=== PATIENT | female | born 1955 | race Caucasian/White ===

== ENCOUNTER 2017-08-22 16:01 | Inpatient (IN) | payer OTHER ==
[2017-08-22 17:22] LABS: CKMB 0.6 ng/mL (0-6.6); Troponin I Less than 0.010 ng/mL (< 0.028)
[2017-08-22 20:28] LABS: Troponin I Less than 0.010 ng/mL (< 0.028)
[2017-08-22 23:11] LABS: Troponin I Less than 0.010 ng/mL (< 0.028)
[2017-08-23 00:07] VITALS: BMI 25.8
[2017-08-23] MEDS ORDERED: Acetaminophen 325 MG TAB PO PRN (00:07)
[2017-08-23] MEDS ORDERED: Ondansetron ODT 4 MG TAB SL PRN (00:07)
[2017-08-23] MEDS ORDERED: Ondansetron HCl/PF 4 MG/2 ML Vial IVP PRN (00:07)
[2017-08-23] MEDS ORDERED: Bisacodyl 5 MG TAB PO PRN (02:43)
[2017-08-23] MEDS ORDERED: Acetaminophen 650 MG Suppository PR PRN (02:43)
[2017-08-23] MEDS ORDERED: cefTRIAXone\\ROCEPHIN 1 GM in Sodium Chloride 0.9% 100 ML IVPB SCH (02:45)
--- NOTE | 2017-08-23 03:38 | HP ---
PRIMARY CARE PROVIDER: Brittny Aparicio M.D. CHIEF COMPLAINT: Cough. HISTORY OF PRESENT ILLNESS: Ms. Weiss is a pleasant 62-year-old lady who was seen at [facility] on 08/23/2017 following transfer from [place] [facility]. She reports that her unexpectedly one month ago. Over the last 2-3 weeks, she has had c ough that is productive of yellowish sputum. She reports having a temperature of 101 degrees Fahrenh eit at home. Over the last 4 days, she reports having nausea. She also reports feeling weak and wobbly over the l ast 4 days and occasional blurriness of vision over the last 4 days. She reports being nauseous over the last 3 days, but denies any vomiting. She went to see her primary care provider yesterday. There, she was found to have oxygen saturations in the 70s on room air. She was, therefore, sent to the emergency room at [place] for further evaluation. REVIEW OF SYSTEMS: All other systems were reviewed and are negative. PAST MEDICAL HISTORY: Hypertension and gastroesophageal reflux disease. PAST SURGICAL HISTORY: Hysterectomy. PSYCHIATRIC HISTORY: Bipolar disorder and depression. SOCIAL HISTORY: The patient is a current smoker, smokes half to 1 pack of cigarettes a day. She dri nks alcohol occasionally. She denies any recreational drug use. FAMILY HISTORY: No family history of premature coronary artery disease. ALLERGIES: No known drug allergies. CURRENT MEDICATIONS: Include clonidine 0.1 mg 2 times a day, Celexa 20 mg daily, Flonase 50 mcg intr anasally daily, Requip 0.25 mg at bedtime, Zyrtec 10 mg daily, and hydrochlorothiazide 25 mg daily. PHYSICAL EXAMINATION: GENERAL: On examination, Ms. Weiss is awake and alert, not in acute distress. VITAL SIGNS: Blood pressure is 158/99, pulse is 83. She is breathing at rate of 20 and saturating 9 1% on 3 liters of oxygen. She was afebrile in the emergency room. EYES: No scleral icterus, no conjunctival pallor. ENT: Dry mucosal membranes, no oropharyngeal erythema or exudates. NECK: Supple, nontender, normal range of movement, trachea is midline. RESPIRATORY: Accessory muscles of breathing are mildly active. Chest wall movements are symmetric b ilaterally. LUNGS: Reveals occasional expiratory wheeze. CARDIOVASCULAR: S1 and S2 are heard, regular. Peripheral pulses palpable. No carotid bruit, no per icardial rub. ABDOMEN: Soft, nontender, bowel sounds are heard, no hepatomegaly, no splenomegaly. NEUROLOGIC: Cranial nerves II-XII intact, deep tendon reflexes are 2+. MUSCULOSKELETAL: Power is 5/5 in all 4 extremities, no lower extremity edema. SKIN: No rashes or subcutaneous nodules. LYMPHATIC: No cervical lymphadenopathy. PSYCHIATRIC: Normal mood, normal affect, patient is oriented to person, place, and time. LABORATORY DATA: Ms. Weiss's labs and investigations were reviewed. I reviewed her electrocardiogr am, which shows normal sinus rhythm, no ST changes to suggest an acute coronary syndrome. I also rev iewed her chest x-ray, which does not show any pulmonary infiltrates. She also had a CT angiogram of the chest, which showed findings suspicious for right upper lobe pneumonia. She also had enlargemen t of the adrenal glands, left greater than right, and a tiny low density lesion in the liver. There was no evidence of pulmonary embolism or thoracic aortic dissection. She has normal white count, kvng vated hemoglobin of 16.1, normal platelet count, INR 1.1, D-dimer less than 0.27, normal sodium, norm al potassium, normal creatinine, normal liver profile, BNP slightly elevated at 106.9 and a normal bl ood urea nitrogen. ASSESSMENT AND PLAN: Ms. Weiss is a pleasant 62-year-old lady who was seen at [facility] on 08/23/2017 following transfer from [place] [facility]. Her problem list inc ludes: 1. Acute hypoxic respiratory failure: Most likely secondary to pneumonia. She will be admitted to the hospital for further management. 2. Community-acquired pneumonia: She has received ceftriaxone and azithromycin as well as DuoNebs. We will continue the same. 3. Hypertension: Monitor vital signs, titrate antihypertensives as needed. 4. Tobacco abuse: The patient has been counseled regarding tobacco cessation. Start nicotine repla cement therapy. 5. Adrenal gland enlargement: Radiologist recommends repeat CT scan of the chest to ensure improvem ent in pneumonia as well as CT scan of the abdomen to evaluate the adrenals. 6. Gastroesophageal reflux disease: Stable. Many thanks for allowing me to participate in your patient's care. Please feel free to contact me wi th any questions or concerns. LEVEL OF RISK: High. LEVEL OF COMPLEXITY: High.
[2017-08-23] MEDS: Sodium Chloride 0.9% 1,000 ML IV SCH ×2 (05:26→17:01)
[2017-08-23 05:53] LABS: #Lymphocytes 1.8 thou/uL (1.20-3.40); #Monocytes 0.9 thou/uL (0.11-0.59); #Neutrophils 9.5 thou/uL (1.40-6.50); %Basophils 0.2 % (0.0-1.0); %Eosinophils 0.1 % (0.0-10.0); %Lymphocytes 14.3 % (21.0-51.0); %Monocytes 7.3 % (0.0-10.0); Hemoglobin 14.6 g/dL (12.0-16.0); Mean Corpuscular HGB CONC 34.1 g/dL (32.0-36.0); Mean Corpuscular Hemoglobin 32.8 pg (27.0-31.0); Mean Corpuscular Volume 96.3 fl (81.0-99.0); Mean Platelet Volume 8.4 fL (7.4-10.4); Platelet Count 296 thou/uL (130-400); RBC Distribution Width 12.6 % (11.5-14.5); Red Blood Cell (RBC) Count 4.44 mill/uL (4.20-5.40); White Blood Cell (WBC) Count 12.2 thou/uL (4.8-10.8)
[2017-08-23 06:13] LABS: Anion Gap 15 mmol/L (10-20); BUN (Urea Nitrogen) 23 mg/dL (9.8-20.1); Calc. Creatinine Clearance 65 mL/min (70-130); Calcium 9.6 mg/dL (7.8-10.44); Carbon Dioxide 29 mmol/L (23-31); Chloride 99 mmol/L (98-107); Estimated GFR-MDRD 60; Glucose 106 mg/dL (80-115); Potassium 3.6 mmol/L (3.5-5.1); Sodium 139 mmol/L (136-145)
[2017-08-23] MEDS: Nicotine 21 MG PATCH TD SCH (08:08)
[2017-08-23] MEDS: Enoxaparin Sodium 40 MG/0.4 ML SYRINGE SC SCH (08:09)
[2017-08-23] MEDS ORDERED: cloNIDine 0.1 MG TAB PO PRN (08:30)
[2017-08-23] MEDS: NIFEdipine XL 60 MG TAB PO SCH (08:35)
[2017-08-23] MEDS: Furosemide 20 MG TAB PO SCH (08:35)
[2017-08-23] MEDS: Citalopram 20 MG TAB PO SCH (08:35)
[2017-08-23] MEDS: lamoTRIgine 100 MG TAB PO SCH (08:35)
[2017-08-23] MEDS: Lisinopril 20 MG TAB PO SCH ×2 (08:35→20:59)
[2017-08-23] MEDS: Aspirin 325 MG TAB PO SCH (08:35)
[2017-08-23] MEDS: cefTRIAXone\\ROCEPHIN 1 GM, Syringe 0.4 ML in Sterile Water 9.6 ML SLOW IVP SCH (12:09)
[2017-08-23] MEDS: Azithromycin 500 MG in Sodium Chloride 0.9% 250 ML 250 ML IVPB SCH (14:47)
[2017-08-23] MEDS: Carvedilol 25 MG TAB PO SCH (17:00)
[2017-08-23] MEDS: Acetaminophen 325 MG TAB PO PRN (17:01)
--- NOTE | 2017-08-23 18:42 | PDOC.PN ---
- Subjective Encounter Start Date: 08/23/17 Encounter Start Time: 18:35 Subjective: f/u for CAP RUL with hypoxia on Rocephin and Zithromax. Still SOB and -: some L chest wall pain with coughing. No Pneumovax in last 5 years. - Objective MAR Reviewed: Yes Vital Signs & Weight: Vital Signs (12 hours) Temp Pulse Resp BP BP Pulse Ox 08/23/17 16:50 99.1 F 79 18 146/80 H 90 L 08/23/17 12:05 98.6 F 77 16 141/65 H 91 L 08/23/17 09:10 145/84 H 08/23/17 08:36 207/106 H 08/23/17 08:35 85 08/23/17 08:05 98.4 F 93 22 H 207/106 H 93 L Weight Weight 146 lb I&O: 08/22/17 08/23/17 08/24/17 06:59 06:59 06:59 Intake Total 240 2404 Output Total 200 Balance 40 2404 Result Diagrams: 08/23/17 05:29 08/23/17 05:29 Additional Labs: Accuchecks 08/23/17 08/23/17 15:34 10:37 POC Glucose 134 H 118 H Radiology Reviewed by me: Yes (CTA chest - RUL infiltrate) EKG Reviewed by me: Yes (Tele - SR) Phys Exam - Physical Examination Constitutional: NAD HEENT: PERRLA, moist MMs, sclera anicteric, oral pharynx no lesions Neck: no nodes, no JVD, supple exp wheezes, coarse rhonchi bilat Respiratory: no rales S1, S2 Cardiovascular: RRR, no significant murmur, no rub, gallop Gastrointestinal: soft, non-tender, no distention, positive bowel sounds Musculoskeletal: no edema, pulses present Neurological: non-focal, normal sensation, moves all 4 limbs Psychiatric: normal affect, A&O x 3 Skin: no rash, normal turgor, cap refill <2 seconds Dx/Plan (1) Acute respiratory failure with hypoxia Code(s): J96.01 - ACUTE RESPIRATORY FAILURE WITH HYPOXIA Status: Acute Comment: Secondary to #2, continue pulmonary support, O2 via NC and wean as clinically tolerated (2) Community acquired pneumonia Code(s): J18.9 - PNEUMONIA, UNSPECIFIED ORGANISM Status: Acute Qualifiers: Laterality: right Lung location: upper lobe of lung Qualified Code(s): J18.1 - Lobar pneumonia, unspecified organism Comment: Suspect gm+ cocci and Strep spp, continue Rocephin and Zithromax, change Duonebs q4h (3) Tobacco use Code(s): Z72.0 - TOBACCO USE Status: Chronic Comment: Tobacco cessation resources, add Dulera 2 puffs BID (4) HTN (hypertension) Code(s): I10 - ESSENTIAL (PRIMARY) HYPERTENSION Status: Chronic Qualifiers: Hypertension type: essential hypertension Qualified Code(s): I10 - Essential (primary) hypertension Comment: Continue Coreg 25mg BID, serial BP monitoring - Plan plan discussed w/ family, continue antibiotics, respiratory therapy, out of bed/ ambulate, DVT proph w/SCDs Stable overall -: Continue Rocephin and Zithromax -: Add Dulera 2 puffs BID -: Change Duonebs q4h -: Tobacco cessation resources Pneumovax prior to d/c AM lab: CBC
[2017-08-23] MEDS: Mometasone/Formoterol 120 PUFF INHALER INH SCH (18:55)
[2017-08-24 05:52] LABS: Band 1 % (5-11); Eosinophils 2 % (0-10); Hemoglobin 13.5 g/dL (12.0-16.0); Lymphocytes 34 % (21-51); MDiff Complete? YES; Mean Corpuscular Hemoglobin 32.2 pg (27.0-31.0); Mean Corpuscular Volume 97.4 fl (81.0-99.0); Mean Platelet Volume 8.3 fL (7.4-10.4); Metamyelocyte 1 % (0-0); Monocytes 6 % (0-10); Neutrophil 56 % (42-75); PLT Morphology Comment Appears Adequate; Platelet Count 266 thou/uL (130-400); Red Blood Cell (RBC) Count 4.21 mill/uL (4.20-5.40); White Blood Cell (WBC) Count 11.3 thou/uL (4.8-10.8)
[2017-08-24] MEDS: Nicotine 21 MG PATCH TD SCH (06:33)
[2017-08-24] MEDS: Mometasone/Formoterol 120 PUFF INHALER INH SCH ×2 (07:08→18:28)
[2017-08-24] MEDS: Furosemide 20 MG TAB PO SCH (09:16)
[2017-08-24] MEDS: Aspirin 325 MG TAB PO SCH (09:16)
[2017-08-24] MEDS: Citalopram 20 MG TAB PO SCH (09:16)
[2017-08-24] MEDS: Carvedilol 25 MG TAB PO SCH ×2 (09:16→16:12)
[2017-08-24] MEDS: Enoxaparin Sodium 40 MG/0.4 ML SYRINGE SC SCH (09:17)
[2017-08-24] MEDS: NIFEdipine XL 60 MG TAB PO SCH (09:17)
[2017-08-24] MEDS: lamoTRIgine 100 MG TAB PO SCH (09:17)
[2017-08-24] MEDS: Lisinopril 20 MG TAB PO SCH ×2 (09:17→21:15)
--- NOTE | 2017-08-24 11:15 | PDOC.PN ---
- Subjective Encounter Start Date: 08/24/17 Encounter Start Time: 11:00 Subjective: f/u for CAP RUL PNA on Rocephin and Zithromax. Feeling better overall -: and tolerating Duonebs. More energy but productive cough. No fever. - Objective MAR Reviewed: Yes Vital Signs & Weight: Vital Signs (12 hours) Temp Pulse Resp BP Pulse Ox 08/24/17 10:44 80 18 90 L 08/24/17 09:17 87 08/24/17 09:10 98.4 F 80 18 194/93 H 100 08/24/17 07:08 87 18 85 L 08/24/17 07:07 86 18 85 L 08/24/17 04:00 98.3 F 75 18 141/72 H 93 L 08/24/17 01:50 85 16 92 L 08/24/17 00:44 93 L Weight Weight 146 lb I&O: 08/23/17 08/24/17 08/25/17 06:59 06:59 06:59 Intake Total 240 2404 Output Total 200 Balance 40 2404 Result Diagrams: 08/24/17 05:04 08/23/17 05:29 Additional Labs: Accuchecks 08/24/17 08/23/17 08/23/17 06:01 20:59 15:34 POC Glucose 97 127 H 134 H Radiology Reviewed by me: Yes (CTA chest - RUL infiltrate) EKG Reviewed by me: Yes (Tele - SR) Phys Exam - Physical Examination Constitutional: NAD HEENT: PERRLA, moist MMs, sclera anicteric, oral pharynx no lesions Neck: no nodes, no JVD, supple diminished in bases, few rhonchi S1, S2 Cardiovascular: RRR, no significant murmur, no rub, gallop Gastrointestinal: soft, non-tender, no distention, positive bowel sounds Musculoskeletal: no edema, pulses present Neurological: non-focal, normal sensation, moves all 4 limbs Psychiatric: normal affect, A&O x 3 Skin: no rash, normal turgor, cap refill <2 seconds Dx/Plan (1) Acute respiratory failure with hypoxia Code(s): J96.01 - ACUTE RESPIRATORY FAILURE WITH HYPOXIA Status: Acute Comment: Secondary to #2, continue pulmonary support, O2 via NC and wean as clinically tolerated, Duonebs and Dulera (2) Community acquired pneumonia Code(s): J18.9 - PNEUMONIA, UNSPECIFIED ORGANISM Status: Acute Qualifiers: Laterality: right Lung location: upper lobe of lung Qualified Code(s): J18.1 - Lobar pneumonia, unspecified organism Comment: Suspect gm+ cocci and Strep spp, continue Rocephin and Zithromax, change Duonebs q4h, add Mucinex 600mg BID (3) Tobacco use Code(s): Z72.0 - TOBACCO USE Status: Chronic Comment: Tobacco cessation resources, add Dulera 2 puffs BID, Nicotine patch daily (4) HTN (hypertension) Code(s): I10 - ESSENTIAL (PRIMARY) HYPERTENSION Status: Chronic Qualifiers: Hypertension type: essential hypertension Qualified Code(s): I10 - Essential (primary) hypertension Comment: Continue Coreg 25mg BID, serial BP monitoring - Plan plan discussed w/ family, continue antibiotics, social media senior associate, respiratory therapy, out of bed/ambulate, DVT proph w/SCDs Stable overall -: Continue Rocephin and Zithromax IV another 24h -: Continue Dulera and Duonebs -: Add Mucinex 600mg BID -: Resume home BP regimen, monitor trend * Tobacco cessation resources * AM lab: CBC * Transfer to medical floor * Likely home in 24h
[2017-08-24] MEDS: cefTRIAXone\\ROCEPHIN 1 GM, Syringe 0.4 ML in Sterile Water 9.6 ML SLOW IVP SCH (12:59)
[2017-08-24] MEDS: guaiFENesin ER 600 MG TAB PO SCH ×2 (13:20→21:15)
[2017-08-24] MEDS: Simvastatin 5 MG TAB PO SCH (16:12)
[2017-08-24] MEDS: Azithromycin 500 MG in Sodium Chloride 0.9% 250 ML 250 ML IVPB SCH (16:15)
[2017-08-24] MEDS ORDERED: Carvedilol 25 MG TAB PO SCH (17:00)
[2017-08-24] MEDS ORDERED: Lisinopril 20 MG TAB PO SCH (21:00)
[2017-08-24] MEDS: rOPINIRole HCl 0.25 MG TAB PO SCH (21:15)
[2017-08-24] MEDS: Lorazepam 1 MG TAB PO SCH (21:15)
[2017-08-25] MEDS: Nicotine 21 MG PATCH TD SCH (03:53)
[2017-08-25 06:04] LABS: Band 3 % (5-11); Eosinophils 4 % (0-10); Hemoglobin 13.3 g/dL (12.0-16.0); Lymphocytes 27 % (21-51); MDiff Complete? YES; Mean Corpuscular HGB CONC 32.6 g/dL (32.0-36.0); Mean Corpuscular Hemoglobin 31.5 pg (27.0-31.0); Mean Corpuscular Volume 96.7 fl (81.0-99.0); Mean Platelet Volume 8.1 fL (7.4-10.4); Monocytes 6 % (0-10); Neutrophil 59 % (42-75); PLT Morphology Comment Appears Adequate; Platelet Count 269 thou/uL (130-400); RBC Distribution Width 12.7 % (11.5-14.5); RBC Morphology Normal; Reactive Lymphocytes 1 % (0-10)
[2017-08-25] MEDS: Mometasone/Formoterol 120 PUFF INHALER INH SCH ×2 (06:50→18:49)
[2017-08-25] MEDS: Aspirin 325 MG TAB PO SCH (08:24)
[2017-08-25] MEDS: lamoTRIgine 100 MG TAB PO SCH (08:24)
[2017-08-25] MEDS: Citalopram 20 MG TAB PO SCH (08:24)
[2017-08-25] MEDS: Carvedilol 25 MG TAB PO SCH ×2 (08:24→17:28)
[2017-08-25] MEDS: Lisinopril 20 MG TAB PO SCH ×2 (08:25→20:02)
[2017-08-25] MEDS: guaiFENesin ER 600 MG TAB PO SCH ×2 (08:25→20:00)
[2017-08-25] MEDS: NIFEdipine XL 60 MG TAB PO SCH (08:25)
[2017-08-25] MEDS: Furosemide 20 MG TAB PO SCH (08:25)
[2017-08-25] MEDS: Enoxaparin Sodium 40 MG/0.4 ML SYRINGE SC SCH (08:29)
[2017-08-25] MEDS ORDERED: Furosemide 20 MG TAB PO SCH (09:00)
[2017-08-25] MEDS ORDERED: Non-Formulary Item 1 EACH (Lamotrigine [Lamotrigine] 200 MG) PO SCH (09:00)
[2017-08-25] MEDS ORDERED: NIFEdipine XL 60 MG TAB PO SCH (09:00)
[2017-08-25] MEDS ORDERED: Citalopram 20 MG TAB PO SCH (09:00)
--- NOTE | 2017-08-25 10:24 | PDOC.PN ---
- Subjective Encounter Start Date: 08/25/17 Encounter Start Time: 10:05 Subjective: f/u for RUL PNA on Rocephin and Zithromax. Feels better overall but still -: requiring O2 supplementation 2L/min NC. Some cough but no fever. - Objective MAR Reviewed: Yes Vital Signs & Weight: Vital Signs (12 hours) Temp Pulse Resp BP BP Pulse Ox 08/25/17 08:25 75 150/80 H 08/25/17 08:11 98.5 F 75 20 150/80 H 90 L 08/25/17 08:00 98.5 F 75 20 90 L 08/25/17 06:48 73 16 92 L 08/25/17 04:12 92 L 08/25/17 04:00 97.9 F 73 16 138/74 90 L 08/25/17 03:25 92 L 08/25/17 00:00 97.7 F 75 16 129/76 92 L 08/24/17 22:46 92 L 08/24/17 22:45 92 L Weight Weight 146 lb I&O: 08/24/17 08/25/17 08/26/17 06:59 06:59 06:59 Intake Total 2404 100 Balance 2404 100 Result Diagrams: 08/25/17 05:17 08/23/17 05:29 Additional Labs: Accuchecks 08/24/17 12:25 POC Glucose 97 Microbiology 08/22/17 12:46 Venous blood - Right Arm Blood Culture - Preliminary NO GROWTH AT 48 HOURS 08/22/17 12:40 Venous blood - Right Hand Blood Culture - Preliminary NO GROWTH AT 48 HOURS Phys Exam - Physical Examination Constitutional: NAD alert, responsive HEENT: PERRLA, moist MMs, sclera anicteric, oral pharynx no lesions Neck: no nodes, no JVD, supple scattered coarse sounds in bases, occasional exp wheeze bilat S1, S2 Cardiovascular: RRR, no significant murmur, no rub, gallop Gastrointestinal: soft, non-tender, no distention, positive bowel sounds Musculoskeletal: no edema, pulses present Neurological: non-focal, normal sensation, moves all 4 limbs Psychiatric: normal affect, A&O x 3 Skin: no rash, normal turgor, cap refill <2 seconds Dx/Plan (1) Acute respiratory failure with hypoxia Code(s): J96.01 - ACUTE RESPIRATORY FAILURE WITH HYPOXIA Status: Acute Comment: Secondary to #2, continue pulmonary support, O2 via NC and wean as clinically tolerated, Duonebs and Dulera, may need home O2 at discharge (2) Community acquired pneumonia Code(s): J18.9 - PNEUMONIA, UNSPECIFIED ORGANISM Status: Acute Qualifiers: Laterality: right Lung location: upper lobe of lung Qualified Code(s): J18.1 - Lobar pneumonia, unspecified organism Comment: Suspect gm+ cocci and Strep spp, d/c Rocephin and Zithromax, change Duonebs q4h, add Mucinex 600mg BID, start Omnicef 300mg BID (3) COPD (chronic obstructive pulmonary disease) Status: Chronic Qualifiers: COPD type: unspecified COPD Qualified Code(s): J44.9 - Chronic obstructive pulmonary disease, unspecified Comment: Suspected given clinical presentation and detention tobacco abuse, start Prednisone 40mg po daily, continue Dulera 2 puffs BID (4) Tobacco use Code(s): Z72.0 - TOBACCO USE Status: Chronic Comment: Tobacco cessation resources, add Dulera 2 puffs BID, Nicotine patch daily (5) HTN (hypertension) Code(s): I10 - ESSENTIAL (PRIMARY) HYPERTENSION Status: Chronic Qualifiers: Hypertension type: essential hypertension Qualified Code(s): I10 - Essential (primary) hypertension Comment: Continue Coreg 25mg BID, Lisinopril 20mg BID, Nifedipine 60mg daily, serial BP monitoring - Plan plan discussed w/ family, continue antibiotics, out of bed/ambulate, DVT proph w /SCDs Stable overall -: Wean O2 as clinically tolerated -: Add Prednisone 40mg daily -: Continue Duonebs, Dulera -: D/C Rocephin and Zithromax * Start Omnicef 300mg BID * Likely home in 24h, may need home O2 for short term
[2017-08-25] MEDS ORDERED: Cefdinir 300 MG CAP PO SCH (10:45)
[2017-08-25] MEDS ORDERED: predniSONE 20 MG TAB PO SCH (10:45)
[2017-08-25] MEDS: Simvastatin 5 MG TAB PO SCH (17:28)
[2017-08-25] MEDS: Cefdinir 300 MG CAP PO SCH (20:00)
[2017-08-25] MEDS: Lorazepam 1 MG TAB PO SCH (20:01)
[2017-08-25] MEDS: rOPINIRole HCl 0.25 MG TAB PO SCH (20:01)
[2017-08-26] MEDS: Nicotine 21 MG PATCH TD SCH (05:23)
[2017-08-26] MEDS: Mometasone/Formoterol 120 PUFF INHALER INH SCH ×2 (06:55→21:11)
[2017-08-26] MEDS ORDERED: predniSONE 20 MG TAB PO SCH (08:00)
[2017-08-26] MEDS: lamoTRIgine 100 MG TAB PO SCH (08:47)
[2017-08-26] MEDS: Lisinopril 20 MG TAB PO SCH ×2 (08:47→20:13)
[2017-08-26] MEDS: Cefdinir 300 MG CAP PO SCH (08:48)
[2017-08-26] MEDS: Aspirin 325 MG TAB PO SCH (08:48)
[2017-08-26] MEDS: Furosemide 20 MG TAB PO SCH (08:48)
[2017-08-26] MEDS: NIFEdipine XL 60 MG TAB PO SCH (08:48)
[2017-08-26] MEDS: Citalopram 20 MG TAB PO SCH (08:49)
[2017-08-26] MEDS: Carvedilol 25 MG TAB PO SCH (08:49)
[2017-08-26] MEDS: guaiFENesin ER 600 MG TAB PO SCH ×2 (08:49→20:13)
[2017-08-26] MEDS ORDERED: cefTRIAXone\\ROCEPHIN 1 GM in Sodium Chloride 0.9% 100 ML IVPB SCH (13:30)
[2017-08-26] MEDS ORDERED: cloNIDine 0.1 MG TAB PO PRN (13:53)
[2017-08-26] MEDS: cefTRIAXone\\ROCEPHIN 1 GM, Syringe 0.4 ML in Sterile Water 9.6 ML SLOW IVP SCH (14:33)
[2017-08-26] MEDS: Simvastatin 5 MG TAB PO SCH (17:34)
[2017-08-26] MEDS: Carvedilol 6.25 MG TAB PO SCH (17:34)
--- NOTE | 2017-08-26 19:42 | PDOC.PN ---
- Subjective Encounter Start Date: 08/26/17 Encounter Start Time: 14:00 Patient seen and examined for Pneumonia. SOB on exertion. On 3 lit/NC. Some cough. No new complaints. No overnight events - Objective MAR Reviewed: Yes Vital Signs & Weight: Vital Signs (12 hours) Temp Pulse Resp BP BP Pulse Ox 08/26/17 17:34 146/78 H 94 L 08/26/17 10:44 88 20 92 L 08/26/17 08:00 98.5 F 76 18 95 08/26/17 07:44 98.5 F 76 18 152/52 H 95 Weight Weight 146 lb I&O: 08/25/17 08/26/17 08/27/17 06:59 06:59 06:59 Intake Total 680 360 Balance 680 360 Result Diagrams: 08/27/17 04:45 08/27/17 04:45 Radiology Reviewed by me: Yes (CT chest RUL pneumonia) Phys Exam - Physical Examination Constitutional: NAD Respiratory: no rhonchi Scat wheezing, Rt sided rales Cardiovascular: RRR, no rub Gastrointestinal: soft, non-tender, positive bowel sounds Musculoskeletal: no edema Neurological: moves all 4 limbs Dx/Plan - Plan DVT proph w/SCDs IMPRESSION: 1. Acute hypoxic resp failure due to COPD Exacerbation/RUL Pneumonia ? Pneumococcal 2. Tobacco dep 3. HTN 4. CKD 2 PLAN: * Change Steroids/Atbx to IV due to persistent hypoxemia * Monitor overnight. * Home O2 assessment in AM * AM labs * Cont nebs * Cont current meds as below Review of Systems - Review of Systems Cardiovascular: negative: chest pain, palpitations, orthopnea, paroxysmal nocturnal dyspnea, edema, light headedness, other Gastrointestinal: negative: Nausea, Vomiting, Abdominal Pain, Diarrhea, Constipation, Melena, Hematochezia, Other - Medications/Allergies Allergies/Adverse Reactions: Allergies Allergy/AdvReac Type Severity Reaction Status Date / Time No Known Allergies Allergy Verified 01/20/15 10:16 Medications: Current Medications Acetaminophen (Tylenol) 650 mg PO Q4H PRN PRN Reason: Headache/Fever or Pain Last Admin: 08/27/17 08:04 Dose: 650 mg Acetaminophen (Tylenol) [address] Q4H PRN PRN Reason: Headache/Fever or Pain Albuterol/Ipratropium (Duoneb) 3 ml NEB Q4H [facility] Last Admin: 08/27/17 06:50 Dose: 3 ml Aspirin (Aspirin) 325 mg PO DAILY [facility] Last Admin: 08/27/17 08:04 Dose: 325 mg Bisacodyl (Dulcolax) 10 mg PO DAILYPRN PRN PRN Reason: Constipation Carvedilol (Coreg) 12.5 mg PO BID-[facility] Last Admin: 08/27/17 08:04 Dose: 12.5 mg Citalopram Hydrobromide (Celexa) 20 mg PO DAILY [facility] Last Admin: 08/27/17 08:05 Dose: 20 mg Clonidine (Catapres) 0.1 mg PO Q4H PRN PRN Reason: Blood Pressure Last Admin: 08/23/17 08:36 Dose: 0.1 mg Clonidine (Catapres) 0.1 mg PO Q4H PRN PRN Reason: Systolic BP > 180 Doxycycline Hyclate (Vibramycin) 100 mg PO BID [facility] Last Admin: 08/27/17 08:04 Dose: 100 mg Furosemide (Lasix) 20 mg PO DAILY [facility] Last Admin: 08/27/17 08:04 Dose: 20 mg Guaifenesin (Mucinex) 600 mg PO Q12HR [facility] Last Admin: 08/27/17 08:05 Dose: 600 mg Ceftriaxone Sodium 1 gm/ (Syringe 0.4 ml/ Sterile Water) 10 mls @ 120 mls/hr SLOW IVP 1400 [facility] Last Admin: 08/26/17 14:33 Dose: 10 mls Lamotrigine (Lamictal) 200 mg PO DAILY [facility] Last Admin: 08/27/17 08:04 Dose: 200 mg Lisinopril (Zestril) 20 mg PO BID [facility] Last Admin: 08/27/17 08:04 Dose: 20 mg Lorazepam (Ativan) 1 mg PO QPM [facility] Last Admin: 08/26/17 20:14 Dose: 1 mg Methylprednisolone Sodium Succinate (Solu-Medrol) 20 mg IVP Q8HR [facility] Last Admin: 08/27/17 05:52 Dose: 20 mg Mometasone Furoate/Formoterol Fumar (Dulera 200 Mcg/5 Mcg Inhaler) 2 puff INH BID-RT [facility] Last Admin: 08/27/17 06:52 Dose: 2 puff Nicotine (Nicoderm Patch) 21 mg TD Q24HR [facility] Last Admin: 08/27/17 05:51 Dose: 21 mg Nifedipine (Procardia Xl) 60 mg PO DAILY [facility] Last Admin: 08/27/17 08:04 Dose: 60 mg Ropinirole HCl (Requip) 0.25 mg PO HS [facility] Last Admin: 08/26/17 20:14 Dose: 0.25 mg Simvastatin (Zocor) 10 mg PO QPM-WM [facility] Last Admin: 08/26/17 17:34 Dose: 10 mg Sodium Chloride (Flush - Normal Saline) 10 ml IVF Q12HR [facility] Last Admin: 08/27/17 08:05 Dose: 10 ml Sodium Chloride (Flush - Normal Saline) 10 ml IVF PRN PRN PRN Reason: Saline Flush
[2017-08-26] MEDS: Doxycycline 100 MG CAP PO SCH (20:12)
[2017-08-26] MEDS: Lorazepam 1 MG TAB PO SCH (20:14)
[2017-08-26] MEDS: rOPINIRole HCl 0.25 MG TAB PO SCH (20:14)
[2017-08-27 05:41] LABS: #Lymphocytes 1.3 thou/uL (1.20-3.40); #Monocytes 0.4 thou/uL (0.11-0.59); #Neutrophils 9.4 thou/uL (1.40-6.50); %Basophils 0.1 % (0.0-1.0); %Eosinophils 0.1 % (0.0-10.0); %Lymphocytes 11.6 % (21.0-51.0); %Monocytes 3.8 % (0.0-10.0); %Neutrophils 84.5 % (42.0-75.0); Hemoglobin 13.6 g/dL (12.0-16.0); Mean Corpuscular HGB CONC 33.5 g/dL (32.0-36.0); Mean Corpuscular Hemoglobin 32.3 pg (27.0-31.0); Mean Corpuscular Volume 96.4 fl (81.0-99.0); Mean Platelet Volume 8.6 fL (7.4-10.4); Platelet Count 282 thou/uL (130-400); RBC Distribution Width 12.6 % (11.5-14.5); Red Blood Cell (RBC) Count 4.22 mill/uL (4.20-5.40); White Blood Cell (WBC) Count 11.1 thou/uL (4.8-10.8)
[2017-08-27] MEDS: Nicotine 21 MG PATCH TD SCH (05:51)
[2017-08-27 05:55] LABS: Albumin 3.6 g/dL (3.4-4.8); Anion Gap 10 mmol/L (10-20); BUN (Urea Nitrogen) 22 mg/dL (9.8-20.1); BUN/Creatinine Ratio 30.56; Calc. Creatinine Clearance 86 mL/min (70-130); Carbon Dioxide 29 mmol/L (23-31); Chloride 99 mmol/L (98-107); Estimated GFR-MDRD 82; Glucose 132 mg/dL (80-115); Magnesium 2.2 mg/dL (1.6-2.6); Potassium 3.7 mmol/L (3.5-5.1); Sodium 134 mmol/L (136-145)
[2017-08-27] MEDS: Mometasone/Formoterol 120 PUFF INHALER INH SCH (06:52)
[2017-08-27 07:52] VITALS: BP 162/63; TEMP 98.3
[2017-08-27] MEDS: Acetaminophen 325 MG TAB PO PRN (08:04)
[2017-08-27] MEDS: NIFEdipine XL 60 MG TAB PO SCH (08:04)
[2017-08-27] MEDS: Furosemide 20 MG TAB PO SCH (08:04)
[2017-08-27] MEDS: Doxycycline 100 MG CAP PO SCH (08:04)
[2017-08-27] MEDS: Aspirin 325 MG TAB PO SCH (08:04)
[2017-08-27] MEDS: Lisinopril 20 MG TAB PO SCH (08:04)
[2017-08-27] MEDS: Carvedilol 6.25 MG TAB PO SCH (08:04)
[2017-08-27] MEDS: lamoTRIgine 100 MG TAB PO SCH (08:04)
[2017-08-27] MEDS: guaiFENesin ER 600 MG TAB PO SCH (08:05)
[2017-08-27] MEDS: Citalopram 20 MG TAB PO SCH (08:05)
[2017-08-27] MEDS: cefTRIAXone\\ROCEPHIN 1 GM, Syringe 0.4 ML in Sterile Water 9.6 ML SLOW IVP SCH (13:11)
--- NOTE | 2017-08-27 14:54 | PDOC.PN ---
- Subjective Encounter Start Date: 08/27/17 Encounter Start Time: 12:30 Patient seen and examined. Dry cough +, SOB on exertion. O2 sats in high 80s on ambulation per RN. No overnight events - Objective MAR Reviewed: Yes Vital Signs & Weight: Vital Signs (12 hours) Temp Pulse Resp BP BP Pulse Ox 08/27/17 11:04 72 16 92 L 08/27/17 08:00 98.3 F 77 16 92 L 08/27/17 07:47 98.3 F 77 16 162/63 H 92 L 08/27/17 06:50 78 16 94 L 08/27/17 04:20 98.4 F 82 20 159/89 H 94 L Weight Weight 146 lb I&O: 08/26/17 08/27/17 08/28/17 06:59 06:59 06:59 Intake Total 680 590 Balance 680 590 Result Diagrams: 08/27/17 04:45 08/27/17 04:45 Phys Exam - Physical Examination Constitutional: NAD (at rest) Respiratory: no wheezing Rt sided rales/rhonchi Cardiovascular: RRR, no rub Gastrointestinal: soft, non-tender, positive bowel sounds Musculoskeletal: no edema Dx/Plan - Plan DVT proph w/SCDs IMPRESSION: 1. Acute hypoxic resp failure due to COPD Exacerbation/RUL Pneumonia ? Pneumococcal 2. Tobacco dep 3. HTN 4. CKD 2 5. Chronic resp failure PLAN: * Will arrange for home O2 * Change Steroids/Atbx to PO * Home med rec completed. Review of Systems - Review of Systems Cardiovascular: negative: chest pain, palpitations, orthopnea, paroxysmal nocturnal dyspnea, edema, light headedness, other Gastrointestinal: negative: Nausea, Vomiting, Abdominal Pain, Diarrhea, Constipation, Melena, Hematochezia, Other - Medications/Allergies Allergies/Adverse Reactions: Allergies Allergy/AdvReac Type Severity Reaction Status Date / Time No Known Allergies Allergy Verified 01/20/15 10:16 Medications: Current Medications Acetaminophen (Tylenol) 650 mg PO Q4H PRN PRN Reason: Headache/Fever or Pain Last Admin: 08/27/17 08:04 Dose: 650 mg Acetaminophen (Tylenol) 650 mg [place] Q4H PRN PRN Reason: Headache/Fever or Pain Albuterol/Ipratropium (Duoneb) 3 ml NEB Q4H [facility] Last Admin: 08/27/17 11:04 Dose: 3 ml Aspirin (Aspirin) 325 mg PO DAILY [facility] Last Admin: 08/27/17 08:04 Dose: 325 mg Bisacodyl (Dulcolax) 10 mg PO DAILYPRN PRN PRN Reason: Constipation Carvedilol (Coreg) 12.5 mg PO BID-[facility] Last Admin: 08/27/17 08:04 Dose: 12.5 mg Citalopram Hydrobromide (Celexa) 20 mg PO DAILY [facility] Last Admin: 08/27/17 08:05 Dose: 20 mg Clonidine (Catapres) 0.1 mg PO Q4H PRN PRN Reason: Blood Pressure Last Admin: 08/23/17 08:36 Dose: 0.1 mg Clonidine (Catapres) 0.1 mg PO Q4H PRN PRN Reason: Systolic BP > 180 Doxycycline Hyclate (Vibramycin) 100 mg PO BID [facility] Last Admin: 08/27/17 08:04 Dose: 100 mg Furosemide (Lasix) 20 mg PO DAILY [facility] Last Admin: 08/27/17 08:04 Dose: 20 mg Guaifenesin (Mucinex) 600 mg PO Q12HR [facility] Last Admin: 08/27/17 08:05 Dose: 600 mg Ceftriaxone Sodium 1 gm/ (Syringe 0.4 ml/ Sterile Water) 10 mls @ 120 mls/hr SLOW IVP 1400 [facility] Last Admin: 08/27/17 13:11 Dose: 10 mls Lamotrigine (Lamictal) 200 mg PO DAILY [facility] Last Admin: 08/27/17 08:04 Dose: 200 mg Lisinopril (Zestril) 20 mg PO BID [facility] Last Admin: 08/27/17 08:04 Dose: 20 mg Lorazepam (Ativan) 1 mg PO QPM [facility] Last Admin: 08/26/17 20:14 Dose: 1 mg Methylprednisolone Sodium Succinate (Solu-Medrol) 20 mg IVP Q8HR [facility] Last Admin: 08/27/17 13:11 Dose: 20 mg Mometasone Furoate/Formoterol Fumar (Dulera 200 Mcg/5 Mcg Inhaler) 2 puff INH BID-RT [facility] Last Admin: 08/27/17 06:52 Dose: 2 puff Nicotine (Nicoderm Patch) 21 mg TD Q24HR [facility] Last Admin: 08/27/17 05:51 Dose: 21 mg Nifedipine (Procardia Xl) 60 mg PO DAILY [facility] Last Admin: 08/27/17 08:04 Dose: 60 mg Ropinirole HCl (Requip) 0.25 mg PO HS [facility] Last Admin: 08/26/17 20:14 Dose: 0.25 mg Simvastatin (Zocor) 10 mg PO QPM-WM [facility] Last Admin: 08/26/17 17:34 Dose: 10 mg Sodium Chloride (Flush - Normal Saline) 10 ml IVF Q12HR [facility] Last Admin: 08/27/17 08:05 Dose: 10 ml Sodium Chloride (Flush - Normal Saline) 10 ml IVF PRN PRN PRN Reason: Saline Flush
--- NOTE | 2017-08-27 19:22 | DIS ---
DATE OF DISCHARGE: 08/27/2017 DISCHARGE DISPOSITION: Home. FOLLOWUP: 1. Follow up with primary care physician, Dr. Aparicio in 1 week. 2. Follow up with pulmonary as an outpatient. ALLERGIES: Patient has no known drug allergies. DISCHARGE MEDICATIONS: 1. Doxycycline 100 mg twice a day. 2. Carvedilol 12.5 mg twice a day (dose reduced). 3. Procardia-XL 90 mg daily. 4. Aspirin 325 mg daily. 5. Celexa 20 mg daily. 6. Clonidine as needed. 7. Lasix 20 mg daily. 8. Mucinex 600 mg twice a day for next 2 weeks. 9. DuoNebs as needed. 10. Lamictal 200 mg daily. 11. Lisinopril 20 mg twice a day. 12. Lorazepam 1 mg q.p.m. 13. Lovastatin 20 mg q.p.m. 14. Dulera 2 puffs b.i.d. 15. Nicotine patch as needed. 16. Prednisone 20 mg twice a day for next 4 days. 17. Requip 0.25 mg at bedtime. 18. Ambien 12.5 mg at bedtime. INPATIENT CONSULTANTS: None. BRIEF HOSPITAL COURSE: Patient is a 62-year-old female who presented to the emergency room with wors ening shortness of breath. Please refer to the history and physical dated 08/22/2017 for further det ails. The patient was admitted to the hospital with a diagnosis of acute hypoxic respiratory failure second marisa to right upper lobe pneumonia with COPD exacerbation. She was started on oxygen, nebulizer treat ment, steroids, and antibiotics. On the day of discharge, she is 92% on room air. She drops to 86-8 7% on ambulation. Home oxygen will be arranged. Blood cultures have been negative so far. Primary care physician advised to follow up on the final cultures. She appears stable for discharge. FINAL DIAGNOSES: 1. Acute hypoxic respiratory failure secondary to chronic obstructive pulmonary disease exacerbation /right upper lobe pneumonia, suspected pneumococcal. 2. Tobacco dependence. Patient was extensively counseled. 3. Hypertension. 4. Chronic kidney disease stage 2. 5. Chronic respiratory failure, home O2 has been arranged this admission. 6. Questionable adrenal gland enlargement. Repeat CT scan as an outpatient is recommended. Primary care physician advised to follow. 7. Gastroesophageal reflux disease. SIGNIFICANT LABORATORIES: 1. D-dimer was negative. 2. BNP was 106. 3. Troponins were negative. 4. CT angiogram of the chest showed findings consistent with right upper lobe pneumonia. Plan of care was discussed with the patient in detail. She stated understanding.
== END 2017-08-27 16:55 | disposition home or self-care (01) | DRG 193 ==
LOC: ERS 16:01 → 2NO 18:00 → T4-A 08-24 18:29
PROVIDERS: ADMIT Internal Medicine; ATTEND Internal Medicine
DX: J13 Pneumonia due to Streptococcus pneumoniae (principal); J96.21 Acute and chronic respiratory failure with hypoxia; I12.9 Hypertensive chronic kidney disease with stage 1 through stage 4 chronic kidney disease, or unspecified chronic kidney disease; N18.2 Chronic kidney disease, stage 2 (mild); K21.9 Gastro-esophageal reflux disease without esophagitis; F17.210 Nicotine dependence, cigarettes, uncomplicated; Z79.899 Other long term (current) drug therapy; F31.9 Bipolar disorder, unspecified; Z79.51 Long term (current) use of inhaled steroids; E27.8 Other specified disorders of adrenal gland
CPT/HCPCS: 36415; 36416; 80048; 80069; 83735; 85007; 85025; 85027; 93005; 94640; 99406; A4216; J0456; J0696; J1650; J2920; J7050; J7506; J7620